=== PATIENT | female | born 1995 | race African-American/Black ===

== ENCOUNTER 2019-02-23 17:08 | Emergency (ER) | payer MEDICAID ==
[~2019-02-23] VITALS: Ht 157.5 cm; Wt 95.0 kg
[2019-02-23] MEDS ORDERED: IBUPROFEN 600MG TABLET PO ONE (21:00)
[2019-02-23 22:36] VITALS: BP 122/76
== END 2019-02-23 22:38 | disposition home or self-care (01) ==
LOC: ER 17:08
DX: S00.12XA Contusion of left eyelid and periocular area, initial encounter (principal); H11.32 Conjunctival hemorrhage, left eye; S50.11XA Contusion of right forearm, initial encounter; M54.2 Cervicalgia; M79.10 Myalgia, unspecified site; V43.52XA Car driver injured in collision with other type car in traffic accident, initial encounter; Y93.9 Activity, unspecified; Y92.410 Unspecified street and highway as the place of occurrence of the external cause
CPT/HCPCS: 70486; 73090; 81025; 99284